=== PATIENT | female | born 1940 | race Two or more races ===

== ENCOUNTER 2022-10-17 16:20 | Emergency (ER) | payer OTHER ==
[~2022-10-17] VITALS: Ht 157.5 cm; Wt 104.5 kg
[2022-10-17 17:32] LABS: Basophils # (auto) 0 10 ^3/uL (0-0.2); Basophils % (auto) 0.3 % (0.0-2.0); Eosinophils # (auto) 0 10 ^3/uL (0-0.8); Eosinophils % (auto) 0.1 % (0.0-7.0); Hematocrit 43.7 % (36.0-46.0); Hemoglobin 14.5 g/dL (12.2-16.2); Lymphocytes % (auto) 17.5 % (10.0-50.0); Mean Corpuscular Hemoglobin 27.9 pg (28.0-32.0); Mean Corpuscular Hgb Conc. 33.1 g/dL (32.0-36.0); Mean Corpuscular Volume 84.3 fL (80.0-100.0); Monocytes # (auto) 0.7 10 ^3/uL (0-1.3); Monocytes % (auto) 5.7 % (0.0-12.0); Neutrophils # (auto) 8.8 10 ^3/uL (1.6-8.6); Neutrophils % (auto) 76.4 % (37.0-80.0); Nucleated Red Blood Cells % 0.1 %; Red Blood Cells 5.18 10^6/uL (4.0-5.20); Red Cell Distribution Width 14.3 % (11.8-14.3); White Blood Cell 11.5 10^3/uL (4.4-10.8)
[2022-10-17 17:37] LABS: Alanine Aminotransferase 35 U/L (13-56); Albumin 3.4 g/dL (3.4-5.0); Anion Gap 9 (5-15); Aspartate Aminotransferase 26 U/L (15-37); BUN/Creatinine Ratio 49.2; Blood Urea Nitrogen 29 mg/dL (7-18); Carbon Dioxide 29 mmol/L (21-32); Chloride 103 mmol/L (98-107); GFR African American 126 mL/min; GFR Non-African American 104 mL/min; Glucose 148 mg/dL (74-106); Magnesium 2.4 mg/dL (1.6-2.6); Potassium 4.6 mmol/L (3.5-5.1); Sodium 141 mmol/L (136-145)
[2022-10-17 17:40] LABS: Alkaline Phosphatase 56 U/L (45-117); Bilirubin, Total 0.5 mg/dL (0.2-1.0); Total Protein 6.8 g/dL (6.4-8.2)
[2022-10-17 17:45] LABS: Partial Thromboplastin Time 35.2 sec (24.6-33.4)
[2022-10-17 18:01] LABS: Urine Bacteria NONE SEEN /hpf (None Seen); Urine Blood Negative /uL (Negative); Urine Hyaline Cast FEW /lpf (0 - 2); Urine Specific Gravity 1.011 (1.001-1.035); Urine WBC 2 /hpf (0 - 5)
[2022-10-17 18:17] LABS: INR 4.12 (0.9-1.15)
[2022-10-17 21:21] VITALS: BP 143/63
== END 2022-10-20 15:38 | disposition home or self-care (01) ==
LOC: ER 16:20
DX: R07.89 Other chest pain (principal); I50.9 Heart failure, unspecified
CPT/HCPCS: 36415; 71045; 80053; 81001; 83735; 83880; 84484; 85025; 85610; 85730; 93005

== ENCOUNTER 2022-10-25 13:50 | Emergency (ER) | payer OTHER ==
[~2022-10-25] VITALS: Ht 157.5 cm; Wt 108.9 kg
[2022-10-25] MEDS ORDERED: HYDROcodone-ACET 10/325MG TAB PO ONE (14:15)
[2022-10-25 14:38] LABS: Basophils # (auto) 0.1 10 ^3/uL (0-0.2); Eosinophils # (auto) 0.2 10 ^3/uL (0-0.8); Eosinophils % (auto) 2.6 % (0.0-7.0); Hematocrit 37.2 % (36.0-46.0); Hemoglobin 12.6 g/dL (12.2-16.2); Lymphocytes # (auto) 2.3 10 ^3/uL (0.4-5.4); Lymphocytes % (auto) 31.4 % (10.0-50.0); Mean Corpuscular Hemoglobin 28.1 pg (28.0-32.0); Mean Corpuscular Hgb Conc. 33.8 g/dL (32.0-36.0); Mean Corpuscular Volume 83.2 fL (80.0-100.0); Monocytes # (auto) 0.9 10 ^3/uL (0-1.3); Monocytes % (auto) 12.5 % (0.0-12.0); Neutrophils # (auto) 3.8 10 ^3/uL (1.6-8.6); Neutrophils % (auto) 52.5 % (37.0-80.0); Nucleated Red Blood Cells % 0.1 %; Red Blood Cells 4.47 10^6/uL (4.0-5.20); Red Cell Distribution Width 14.6 % (11.8-14.3); White Blood Cell 7.2 10^3/uL (4.4-10.8)
[2022-10-25 14:56] LABS: Albumin 3.3 g/dL (3.4-5.0); BUN/Creatinine Ratio 30.2; Calcium 8.5 mg/dL (8.5-10.1); Potassium 3.8 mmol/L (3.5-5.1)
[2022-10-25 15:00] LABS: Bilirubin, Total 0.7 mg/dL (0.2-1.0); Total Protein 6.2 g/dL (6.4-8.2)
[2022-10-25] MEDS ORDERED: HYDR-4902 PO (15:56)
[2022-10-25] MEDS ORDERED: CEPH-510 PO (15:56)
[2022-10-25] MEDS ORDERED: DexAMETHasone SOD PHOS 10MG/1ML VIAL INJ IM ONE (16:00)
[2022-10-25 22:40] VITALS: BP 101/72
== END 2022-10-25 17:19 | disposition home or self-care (01) ==
LOC: EDUNIT# 13:50 → EDBD 13:50 → ER 13:50
DX: R60.0 Localized edema (principal); L08.9 Local infection of the skin and subcutaneous tissue, unspecified; I73.89 Other specified peripheral vascular diseases; I50.9 Heart failure, unspecified
CPT/HCPCS: 36415; 71045; 80053; 83880; 84484; 85025; 93971